=== PATIENT | male | born 1960 | race Caucasian/White ===

== ENCOUNTER 2023-06-03 06:01 | Day surgery (SDC) | payer OTHER ==
[2023-06-01 14:42] VITALS: BMI 22.3
[2023-06-03] MEDS ORDERED: LIDOCAINE 1% (10MG/ML) FOR IV START INTRADERMA PRN (06:13)
[2023-06-03] MEDS: LACTATED RINGERS 1,000 ML IV SCH (06:16)
[2023-06-03 06:38] VITALS: RESP 16; TEMP 98
[2023-06-03 06:38] LABS: Glucose,Whole Blood 139 mg/dL (70-110)
[2023-06-03] MEDS ORDERED: PROPOFOL 10 MG/ML 20 ML VIAL IV ONE (07:01)
[2023-06-03] MEDS ORDERED: LIDOCAINE 1% INJ 10MG/ML (20 ML MDV) ONE (07:01)
--- NOTE | 2023-06-03 07:23 | P.PCN ---
Date of Procedure: 06/03/23 Procedure(s) Performed: Brief history: Patient is a pleasant 8-year-old white malescheduled for an elective upper endoscopy as well as colonoscopy as a part of evaluation ofLong-standing history history of GERD and history of ulcerative colitis diagnosed in 1995.He is maintained on Lialda 4 times daily and remains in remission. Procedure performed: Esophagogastroduodenoscopy Colonoscopy with random biopsy Preoperative diagnosis: GERD History of ulcerative colitis Anesthesia: [facility] [place] Procedure: After informed consent was obtained from the patient was brought into the endoscopy unit and IV sedation was administered by anesthesia under continuous monitoring. Initially upper endoscopy was done. The Olympus GF 160 video endoscope was inserted inserted into the mouth and esophagus intubated without any difficulty and was gradually advanced into the stomach and duodenum and carefully examined. The bulb and second part of the duodenum appeared normal. The scope was then withdrawn into the stomach adequately insufflated with air and upon careful examination the antrum and body, cardia and fundus appeared normal. The scope was then withdrawn into the esophagus. The GE junction was located at 40 cm to the incisors. It appeared regular with no erythema erosions or ulcerations.There was no evidence of Cruz's esophagus per Rest of the esophagus appeared normal. Patient tolerated the procedure well. At this time the patient continued to remain sedation. Initial digital rectal examination was normal. Olympus CF 160 video colonoscope was then inserted into the rectum and gradually advanced to the cecum without any difficulty. Careful examination was performed as the scope was gradually being withdrawn. The prep was excellent. The cecum, ascending colon, transverse colon, descending colon, sigmoid colon and rectum appeared normal. Random biopsy was then done from the cecum to rectum at every 10 cm intervals to rule out dysplasia Retroflexion was performed in the rectum and no lesions were noted. Patient tolerated the procedure well. Impression: 1. Upper endoscopy revealed normal-appearing esophagus with no evidence of Cruz's esophagus or esophagitis 2. Colonoscopy was within normal limits with no evidence of active colitis or colon rectal neoplasia Recommendations: Findings of this examination were discussed with the patient as well as His family. He was advised to follow with the biopsy results. Continue with Protonix 40 mg daily and follow antireflux measures. If the biopsies of the colon does not show any evidence of dysplasia, recommend repeat anoscopy in 3 years.
[2023-06-03 07:37] LABS: Glucose,Whole Blood 128 mg/dL (70-110)
[2023-06-03 08:07] VITALS: BP 137/82; PULSE 69
== END 2023-06-03 08:17 ==
LOC: ORWHC2ENDO 06:01
PROVIDERS: ATTEND Internal Medicine Gastroenterology
DX: K21.9 Gastro-esophageal reflux disease without esophagitis (principal); K51.90 Ulcerative colitis, unspecified, without complications; E78.5 Hyperlipidemia, unspecified; J45.909 Unspecified asthma, uncomplicated; N40.0 Benign prostatic hyperplasia without lower urinary tract symptoms; E03.9 Hypothyroidism, unspecified; E11.9 Type 2 diabetes mellitus without complications; F20.9 Schizophrenia, unspecified; K76.0 Fatty (change of) liver, not elsewhere classified; I49.3 Ventricular premature depolarization; Z79.84 Long term (current) use of oral hypoglycemic drugs; Z79.890 Hormone replacement therapy; Z79.899 Other long term (current) drug therapy; Z88.8 Allergy status to other drugs, medicaments and biological substances; Z88.1 Allergy status to other antibiotic agents; Z79.51 Long term (current) use of inhaled steroids
CPT/HCPCS: 88305; 45380; 43235; J2001; J2704